=== PATIENT | female | born 1975 | race Caucasian/White ===

== ENCOUNTER → 2023-04-09 | Outpatient (CLI) | payer OTHER, SELFPAY ==
--- NOTE | 2023-04-09 10:00 | CYSPIN_PTH ---
PATIENT: HUBER FONTANEZ LOC: [facility] U#:[id number] AGE/SX: 47/F ROOM: RE04/09/[address]: Dr. Kaylyn Leigh MD : 1975 BED: DIS: 04/09/2023 SPEC #: [id number] RECD: 04/10/23 10:41 STATUS: ALONZO ARRIAZA #: [id number] LONG: 04/09/23 10:[address]: Kaylyn Leigh DEPT: CYTOLOGY RECD BY: Nury Ayon Tissues: Urine Procedures: Pap Stain (control) Special Stain Group II Cytospin Fluid HEADER OPERATION: Not noted PRE-OP DIAGNOSIS: Gross hematuria TISSUE SUBMITTED: Urine for cytology DIAGNOSIS CYTOLOGY Urine for cytology (cytospin): Negative for high-grade urothelial carcinoma (NHGUC), [facility] System Category II. See comment. ANTONELLA:lucina 04/11/2023 COMMENT The specimen predominantly consists of squamous epithelial cells. Clinical correlation and appropriate follow up are necessary. The [facility] System for urine cytology diagnostic categorization was used in the evaluation of this case. CYTOLOGY STUDY Slides are reviewed. CYTOLOGY GROSS Received is 50 ml of light yellow cloudy fluid labeled with the patient's name and and designated per the requisition as urine. Submitted for cytology preparation. / lucina 04/10/2023 TC:4 CPT: 82828
[2023-04-09 19:23] LABS: Cytology, Body Fluid / CSF SEE PATHOLOGY REPORT
== END | disposition home or self-care (01) ==
PROVIDERS: Visit Provider Urology
DX: R31.0 Gross hematuria (principal)
CPT/HCPCS: 88108; 88313

== ENCOUNTER 2023-04-24 10:01 | Day surgery (SDC) | payer SELFPAY, OTHER ==
[2023-04-24] VITALS (7 sets, daily range): BP systolic 115–130; BP diastolic 72–80; PULSE 49–63; RESP 16; TEMP 36.3–36.6; O2SAT 98–100; BMI 25.3
[2023-04-24 10:28] LABS: Internal QC Validated? YES +Cl - CLEAR BKGD; Record Kit Lot#,Urine Preg HCG0000667200
[2023-04-24 10:32] LABS: Pregnancy, Urine Negative Negative
[2023-04-24] MEDS: Lactated Ringers 1,000 ML 15 ML IV (10:57)
[2023-04-24] MEDS: Cefazolin 2 GM in 0.9% Normal Saline (100mL Bag) 100 ML IV (11:38)
--- NOTE | 2023-04-24 11:40 | FLU_PTH ---
PATIENT: HUBER FONTANEZ [place] [facility] [place][id number] AGE/SX: 47/F ROOM: RE04/24/[address]: Dr. Kaylyn Leigh MD : 1975 BED: DIS: 04/24/2023 SPEC #: [id number] RECD: 04/24/23 13:05 STATUS: ALONZO REWally #: [id number] LONG: 04/24/23 11:[address]: Kaylyn Leigh DEPT: CYTOLOGY RECD BY: Nury Ayon ENTERED: 04/24/23 13:06 SP TYPE: Fluid OTHR DR: Dr. Gwendolyn Felipe MD Tissues: A - Pelvis, NOS B - Pelvis, NOS Procedures: Special Stain Group II Surgery Specimen Level IV Cytospin Fluid HEADER OPERATION: Cysto, bilateral selective cytology, bilateral ureteroscopy PRE-OP DIAGNOSIS: Gross hematuria, urinary tract infection, history of nephrolithiasis TISSUE SUBMITTED: A - Right pelvis washing, B - Left pelvis washing DIAGNOSIS CYTOLOGY A. Right pelvic washing fluid (cytospin and cell block): Negative for high-grade urothelial carcinoma (NHGUC), [facility] Category II. See comment. B. Right pelvic washing fluid (cytospin and cell block): Negative for high-grade urothelial carcinoma (NHGUC), [facility] Category II. See comment. SJ:rg 04/25/2023 COMMENT A & B. Clusters of benign urothelial cells are noted. Clinical correlation and appropriate follow up are necessary. The [facility] System for urine cytology diagnostic categorization was used in the evaluation of this case. CYTOLOGY STUDY Slides are reviewed. CYTOLOGY GROSS A - Received is 5 ml of clear fluid labeled with the patient's name and and designated per the requisition as right pelvis washing. Submitted for cytology preparation including cell block. B - Received is 5 ml of clear fluid labeled with the patient's name and and designated per the requisition as left pelvis washing. Submitted for cytology preparation including cell block. / lucina 04/24/2023 TC:5 CPT: 56515 x2, 71984 x2
--- NOTE | 2023-04-24 12:31 | DCINST_ITS ---
Discharge Instructions Diet Discharge Diet: No restrictions Activity Discharge Activity: Return to Normal Activity Dressing / Incision Call your doctor if you observe: Fever of 101 or Higher, Inability to urinate and Inability to have a bowel movement Follow Up Care Please Follow Up With: Kaylyn Leigh MD When: The office will call the patient to make arrangements for follow-up Test Results: Test results from this visit will be discussed in further detail at your follow- up appointment, if applicable. Discharge Plan Admission Attending Provider: Kaylyn Leigh Primary Care Provider: Gwendolyn Felipe Discharge Orders/Prescriptions Prescriptions: New oxycodone-acetaminophen [Percocet] 5-325 mg tablet 1 tab PO Q8H PRN (Reason: pain) 2 Days Qty: 7 0RF cephalexin [cephalexin] 500 mg capsule 500 mg PO Q12 3 Days Qty: 6 0RF Continued d-mannose 500 mg capsule 500 mg PO DAILY ascorbic acid (vitamin C) [C-500] 500 mg tablet 1 g PO DAILY phenazopyridine 95 mg tablet 95 mg PO DAILY Probiotic Acidophilus 250 million cell capsule 500 mmu cells PO DAILY Disposition Disposition (needs filled in before D/C Order can be placed): Home, Self Care
--- NOTE | 2023-04-24 12:34 | PCM.OPRPT ---
Report of Operation Date of Procedure: 04/24/23 Pre-Operative Diagnosis: Gross hematuria Post-Operative Diagnosis: Same Surgery/Procedure Performed:: Cystoscopy, bilateral selective cytology, bilateral ureteroscopy Surgeon: Kaylyn Leigh Type of Anesthesia: General Specimen's removed: Bilateral renal pelvic washings for cytologic evaluation Description of Procedure: The patient is a 47-year-old female with gross hematuria and a negative CT evaluation and office cystoscopy. She presents for ureteroscopy. Informed consent was obtained. The patient was taken to the operating room and placed on the operating room table. Anesthesia monitored the head, neck, airway, IV access and vital signs throughout the case. Once anesthesia was appropriately ministered the patient was placed into dorsolithotomy position and was prepped and draped in usual sterile fashion. The cystoscope was inserted through the urethra under direct visualization into the urinary bladder. The bladder mucosa was again visualized revealing no evidence of abnormality. The left ureteral orifice was intubated with a Pollick catheter which easily advanced to over 20 cm. Using sterile saline, washings of the renal pelvis were performed and the fluid was sent for cytologic evaluation. This process was repeated on the patient's right side with a brand-new sterile Pollick catheter. At this time a 0.035 Glidewire was inserted through the left ureteral orifice into the renal pelvis is seen on fluoroscopic evaluation. The ureteroscope easily passed over the wire into the left ureter and advanced without difficulty all the way to the renal pelvis. The wire was removed. Each calyx was directly visualized revealing no evidence of mass, erythema, foreign body including stone. The entire length of the ureter was directly visualized as the ureteroscope was removed. There were no abnormalities identified. This process was repeated on the patient's right side with the same findings. At this time the ureteroscope was removed, the patient's bladder was emptied with the cystoscope which was then removed. She was awakened and taken to the recovery room in good condition. There were no complications during this procedure. Grafts/Implants Used: None Complications None Admit VTE Documentation VTE Present on Admission: Yes VTE Mechan Device Prophylaxis: SCD's VTE Pharm Prophylaxis ordered?: No Reason prophylaxis not ordered:: Treatment Not Indicated
[2023-04-25 07:58] LABS: Cytology, Body Fluid / CSF SEE PATHOLOGY REPORT
[2023-04-25 07:58] LABS: Cytology, Body Fluid / CSF SEE PATHOLOGY REPORT
== END 2023-04-24 13:44 | disposition home or self-care (01) ==
LOC: SDC 10:06 → AC 10:10
PROVIDERS: PCP Family Medicine; Referring Provider Urology; Visit Provider Urology
PROC: 0TJ98ZZ Inspection of Ureter, Via Natural or Artificial Opening Endoscopic (ICD-10-PCS; CPT 52352; principal; 2023-04-24 11:30)
DX: R31.0 Gross hematuria (principal); N39.0 Urinary tract infection, site not specified; R35.0 Frequency of micturition; R35.1 Nocturia; Z87.442 Personal history of urinary calculi
CPT/HCPCS: 52354; 00910; 76000; 81025; 88108; 88305; 88313; J7120

== ENCOUNTER → 2023-05-19 | Outpatient (CLI) | payer OTHER, SELFPAY ==
[2023-05-24 08:10] LABS: HPV APTIMA, High Risk Negative (Negative)
== END | disposition home or self-care (01) ==
LOC: LABSPEC 16:12
PROVIDERS: PCP Family Medicine; Referring Provider Nurse Practitioner Women's Health; Visit Provider Nurse Practitioner Women's Health
DX: Z12.4 Encounter for screening for malignant neoplasm of cervix (principal)
CPT/HCPCS: 87624; 88175; G0145